=== PATIENT | male | born 1935 | race Caucasian/White ===

== ENCOUNTER 2016-08-05 07:35 | Observation (INO) | payer MEDICARE ==
[~2016-08-05] VITALS: Ht 188 cm; Wt 93.3 kg
[2016-08-05] VITALS (11 sets, daily range): BP systolic 115–154; BP diastolic 55–107; PULSE 85–126; RESP 16–24; O2SAT 91–98
[~2016-08-05 07:35] MED LIST: ASPI-628 PO; CALC500T9 PO; LANS30CA14 PO; NAM10 PO; SILD100T PO; [UNRECOGNIZED DRUG - OTHER] PO
[2016-08-05] MEDS ORDERED: EZET10TA27 PO (08:03)
[2016-08-05] MEDS ORDERED: WARF5TAB7 PO ×2 (08:03→14:15)
[2016-08-05] MEDS ORDERED: VERA80TA2 PO (08:03)
--- NOTE | 2016-08-05 08:15 | ED.REPORT ---
HPI-Chest Pain 40 and Over Date of Service August 05, 2016 ED Provider: Bryanna Rivera MD Nursing Notes Stated Complaint: SOB Chief Complaint: Respiratory Distress Nursing Notes Reviewed: Yes Allergies: Coded Allergies: No Known Allergies (Unverified , 08/05/16) Scheduled Aspirin (Aspir 81) 81 Mg Tablet.dr 81 MG PO DAILY Ezetimibe (Ezetimibe) 10 Mg Tablet 10 MG PO DAILY Lansoprazole DR (Prevacid) 30 Mg Capsule.dr 30 MG PO DAILY Memantine (Namenda) 10 Mg Tablet 10 MG PO BID Sildenafil Citrate (Viagra) 100 Mg Tablet 100 MG PO UD Verapamil (Verapamil) 80 Mg Tablet 80 MG PO TID Warfarin Sodium (Warfarin Sodium) 5 Mg Tablet 5 MG PO DAILY Scheduled PRN Calcium Carbonate (Tums) 200 Mg Tab.chew 200 MG PO PRN PRN PRN For Dyspepsia or Heartburn Past Medical History Smoking History Unknown if Ever Smoker Physical Exam Initial Vital Signs Vital Signs (First) Date Time Temp Pulse Resp B/P Pulse Ox O2 Delivery O2 Flow Rate FiO2 08/05/16 07:37 35.7 125 20 150/107 97 Interpretation & Diagnostics Lab Results Interpretation Result Diagram: 08/05/16 0755 08/05/16 0755 Test 08/05/16 07:55 White Blood Count 6.9th/mm3 (3.8-10.1) Red Blood Count 5.53mil/mm3 (4.40-5.80) Hemoglobin 15.2g/dL (13.8-17.2) Hematocrit 47.2% (41.0-50.0) Mean Corpuscular Volume 85.4fL (81-100) Mean Corpuscular Hemoglobin 27.5pg (27.0-35.0) Mean Corpuscular Hemoglobin Concent 32.2% (32.0-37.0) Red Cell Distribution Width 14.4% (12.3-15.4) Platelet Count 227bil/L (150-400) Neutrophils (%) (Auto) 70.4% (40-74) Lymphocytes (%) (Auto) 14.1% (14-46) Monocytes (%) (Auto) 12.2% (4-12) Eosinophils (%) (Auto) 2.6% (0-5) Basophils (%) (Auto) 0.4% (0-3) Sodium Level 142mEq/L (134-144) Potassium Level 4.0mEq/L (3.5-5.2) Chloride Level 104mEq/L (97-108) Carbon Dioxide Level 25mmol/L (18-29) Blood Urea Nitrogen 20mg/dL (8-27) Creatinine 1.02mg/dL (0.76-1.27) Estimat Glomerular Filtration Rate 75mL/min (>59) Glucose Level 105mg/dL (60-99) Calcium Level 9.3mg/dL (8.5-10.1) Magnesium Level 2.1mg/dL (1.6-2.6) Total Bilirubin 0.5mg/dL (0.0-1.2) Aspartate Amino Transf (AST/SGOT) 17U/L (0-50) Alanine Aminotransferase (ALT/SGPT) 9U/L (0-44) Alkaline Phosphatase 91U/L (25-160) Troponin T 0.010ug/L (0.0-0.011) Total Protein 7.2g/dL (6.4-8.4) Albumin 4.2g/dL (3.4-5.0) ECG Interpretation ECG Interpretation: Sinus tachycardia, rate 123 Prolonge QT interval Time: 07:48 Interpreted by: ED physician Discharge & Departure Referrals: Shelton Vizcaino MD (PCP) Bryanna Schaefer MD August 05, 2016 08:15 Christine Valle August 05, 2016 08:24
[2016-08-05 08:28] LABS: TROPONIN T 0.01 ug/L (0.0-0.011)
[2016-08-05 08:30] LABS: BASOPHILS % (AUTO) 0.4 % (0-3); EOSINOPHILS % (AUTO) 2.6 % (0-5); MONOCYTES % (AUTO) 12.2 % (4-12); Mean Corpuscular Hemoglobin 27.5 pg (27.0-35.0); Mean Corpuscular Volume 85.4 fL (81-100); NEUTROPHILS % (AUTO) 70.4 % (40-74); Platelet Count 227 bil/L (150-400)
[2016-08-05 08:39] LABS: Magnesium 2.1 mg/dL (1.6-2.6)
--- NOTE | 2016-08-05 09:00 | DRSVH ---
PROCEDURE: X-RAY CHEST ONE VIEW, PORTABLE ([id number]) INDICATIONS: SHORT OF BREATH TECHNIQUE: One view of the chest was acquired. COMPARISON: None. FINDINGS: Surgical changes and devices: None. Lungs and pleura: No pleural effusions or pneumothorax. Bibasilar atelectasis otherwise the lungs ar e clear. Mediastinum: Mediastinal contours appear normal. Heart size is normal. Bones and chest wall: No suspicious bony lesions. Overlying soft tissues appear unremarkable. IMPRESSION: Bibasilar atelectasis otherwise normal chest radiograph. Dictated by: Ramirez Mendes M.D. on 08/05/2016 at 8:57 Approved by: Ramirez Mendes M.D. on 08/05/2016 at 8:58
--- NOTE | 2016-08-05 09:07 | ED.REPORT ---
HPI-Dyspnea / Wheezing Date of Service August 05, 2016 ED Provider: Boyd Shea MD The pt is a 81 year old male w/ a hx of HTN and dementia who presents to the ED accompanied by his due to SOB intermittently for the past month and worsening over the last 2 days. Associated symptoms include non-productive cough , fatigue, heart palpitations, and nasal congestion. His symptoms are worse when he lies down and are not exacerbated by exertion. He denies fever, chest pain, and vomiting. Nursing Notes Stated Complaint: SOB Chief Complaint: Respiratory Distress Nursing Notes Reviewed: Yes Allergies: Coded Allergies: Kldlosr-Lyz-Wzk Reductase Inhibitor (Verified Allergy, Unknown, 08/05/16) Scheduled Aspirin (Aspirin) 81 Mg Tablet 81 MG PO DAILY Ezetimibe (Ezetimibe) 10 Mg Tablet 10 MG PO DAILY Lansoprazole DR (Prevacid) 30 Mg Capsule.dr 30 MG PO DAILY Memantine HCl (Memantine HCl) 10 Mg Tablet 10 MG PO BID Verapamil (Verapamil) 80 Mg Tablet 80 MG PO TID Warfarin Sodium (Warfarin Sodium) 5 Mg Tablet 5 MG PO Friday, fri,fri, fri Warfarin Sodium (Warfarin Sodium) 5 Mg Tablet 2.5 MG PO ,,Fri Scheduled PRN Calcium Carbonate (Tums) 200 Mg Tab.chew 200-400 MG PO TID PRN PRN For Dyspepsia or Heartburn Clotrimazole (Itch Relief) 1 % Cream..g. 15 GM TP BID PRN PRN prn Desonide (Desonide Cream) 15 Gm Cream..g. 1 APPLIC TOP BID PRN PRN prn Sildenafil Citrate (Viagra) 100 Mg Tablet 50-100 MG PO prn PRN PRN for sexual activity General Time Seen by MD: 09:05 Chief Complaint Shortness of breath Hx Obtained From: Patient Arrived By: Walk-in Sudden in Onset?: Yes Onset Occurred: More than a week ago... (1 month) Symptom Duration: Intermittent Severity: Current: No pain currently Recent Healthcare: No recent doctor visit, No recent hospitalization Similar Sx Previous: No Past Medical History Past Medical History acid reflux Reports: Hypertension Past Surgical History cardiac stents Reports: Inguinal hernia repair Smoking History Never Smoker Social History Other Social History: Good social support, , Local resident Ambulatory Status Independent Review of Systems Review of Systems Note: heart palpitations Constitutional: Reports: Fatigue, Denies: Fever Ears / Nose / Throat: Reports: Nasal congestion Respiratory: Reports: Non-productive cough, Shortness of breath Cardiovascular: Denies: Chest pain Complete sys rev & neg: except as marked. GI: Denies: Vomiting Physical Exam Initial Vital Signs Vital Signs (First) Date Time Temp Pulse Resp B/P Pulse Ox O2 Delivery O2 Flow Rate FiO2 08/05/16 07:37 35.7 125 20 150/107 97 08/05/16 09:32 Nasal Cannula 1.5 Initial VS: Reviewed Head / Eyes: Atraumatic, Normocephalic, PERRL ENT: Mucous membranes moist, Conjunctiva normal Abdomen / GI: Soft, Non-tender, No guarding, No rebound Back: No CVA tenderness Lymphatic: No lymphadenopathy Extremities: Vascular intact, Neuro intact, No swelling, No tenderness Skin: Warm, Dry Neurologic: Alert, Oriented General/Constitutional: Awake, Alert, Cooperative Neck: Atraumatic, Supple Wheezing / Retractions: Positive: Wheeze insp/exp diffuse (scattered ) Cardiovascular: No murmurs Heart Rate / Rhythm: Positive: Tachycardia Interpretation & Diagnostics Lab Results Interpretation Result Diagram: 08/05/16 0755 08/05/16 0755 Test 08/05/16 07:55 White Blood Count 6.9th/mm3 (3.8-10.1) Red Blood Count 5.53mil/mm3 (4.40-5.80) Hemoglobin 15.2g/dL (13.8-17.2) Hematocrit 47.2% (41.0-50.0) Mean Corpuscular Volume 85.4fL (81-100) Mean Corpuscular Hemoglobin 27.5pg (27.0-35.0) Mean Corpuscular Hemoglobin Concent 32.2% (32.0-37.0) Red Cell Distribution Width 14.4% (12.3-15.4) Platelet Count 227bil/L (150-400) Neutrophils (%) (Auto) 70.4% (40-74) Lymphocytes (%) (Auto) 14.1% (14-46) Monocytes (%) (Auto) 12.2% (4-12) Eosinophils (%) (Auto) 2.6% (0-5) Basophils (%) (Auto) 0.4% (0-3) Prothrombin Time 25.4sec (8.1-12.5) Prothromb Time International Ratio 2.33ratio D-Dimer < 0.50mg/L FEU (<0.50) Sodium Level 142mEq/L (134-144) Potassium Level 4.0mEq/L (3.5-5.2) Chloride Level 104mEq/L (97-108) Carbon Dioxide Level 25mmol/L (18-29) Blood Urea Nitrogen 20mg/dL (8-27) Creatinine 1.02mg/dL (0.76-1.27) Estimat Glomerular Filtration Rate 75mL/min (>59) Glucose Level 105mg/dL (60-99) Calcium Level 9.3mg/dL (8.5-10.1) Magnesium Level 2.1mg/dL (1.6-2.6) Total Bilirubin 0.5mg/dL (0.0-1.2) Aspartate Amino Transf (AST/SGOT) 17U/L (0-50) Alanine Aminotransferase (ALT/SGPT) 9U/L (0-44) Alkaline Phosphatase 91U/L (25-160) Troponin T 0.010ug/L (0.0-0.011) Pro-B-Type Natriuretic Peptide 2311pg/mL (0-486) Total Protein 7.2g/dL (6.4-8.4) Albumin 4.2g/dL (3.4-5.0) Hold Ortiz Top Tube Received (Received) ECG Interpretation ECG Interpretation: no ST changes Time: 08:30 Interpreted by: ED physician Rhythm / Conduction: Tachycardia (rate 123) Time: 09:19 Interpreted by: ED physician Rhythm / Conduction: Tachycardia (rate 120) X-Ray Chest Interpretation Chest Xray Interpretation: IMPRESSION: Bibasilar atelectasis otherwise normal chest radiograph. Dictated by: Ramirez Mendes M.D. on 08/05/2016 at 8:57 Approved by: Ramirez Mendes M.D. on 08/05/2016 at 8:58 View: Portable Interpretation / Wet Read by: Interpret - Radiologist Re-Eval/Medical Decision Med Decision/Clinical Course 81-year-old male history of atrial fibrillation on Coumadin, CHF, CAD with stents presenting with dyspnea times one month. On arrival his heart rate was in the 120s to 140s. At times he was in sinus rhythm at times and atrial fibrillation with RVR. Patient was given several doses of diltiazem with minimal improvement. His heart rate still bumped up to the 140s. He was placed on a diltiazem drip and admitted for atrial fibrillation with RVR. His d-dimer is negative. He has a CHF component likely with BNP elevated. Of the medications he shows me, he is not heart failure medications. Recent echo EF 45-50%. Will be admitted for atrial fibrillation with RVR, CHF exacerbation. Re-Evaluation/Progress : Time of Eval: 10:30 Re-Evaluation/Progress Note: Pt rechecked. He is going in and out of atrial fibrillation. Consultation : Referral / Consult Name: Myron Mathias MD Call Returned at: 12:48 Customer Support Executive: Agrees with eval, Agrees with plan, Accepts admit Note: Case discussed with endocrinology. Dr. Mathias accepts admit. Counseled Regarding: Diagnosis, Lab results, Need for admission Discharge & Departure Impression: Primary Impression: Atrial fibrillation with RVR Additional Impressions: Dyspnea Dyspnea type: unspecified Qualified Code: R06.00 - Dyspnea, unspecified CHF exacerbation Congestive heart failure type: unspecified congestive heart failure type Qualified Code: I50.9 - Heart failure, unspecified Disposition: ADMITTED TO HOSPITAL Discharge Condition All VS Reviewed: Yes Condition: Stable Referrals: Shelton Vizcaino MD (PCP) Crit Care Except Billable Proc Time Spent: 30-74 minutes (60) Services Performed: Patient management by me, Time spent at bedside, Reviewing test results, Reviewing imaging, Discussing patient care, Documentation in record, Time with fam/surrogate Scribe Attestation Portion of this note were transcribed by Elyssa Talavera. I, Dr. Shea, personally performed the history, physical exam, and medical decision-making: I reviewed and confirmed the accuracy for the information in the transcribed note. Signed by: aden To, 08/05/16 1100 copies to: Shelton Vizcaino MD, Ben M MD August 05, 2016 09:07 Elyssa Talavera August 05, 2016 09:15
[2016-08-05] MEDS ORDERED: 0.9% Sodium Chloride 500 ML IV ONE (09:17)
[2016-08-05] MEDS ORDERED: Albuterol-Ipratropium 3 mL Inhalation Solution NEB ONE (09:20)
[2016-08-05 09:34] LABS: INR 2.33 ratio
[2016-08-05] MEDS ORDERED: Diltiazem 5 mg/mL 5 mL Inj IVPUSH ONE ×2 (10:15→11:15)
[2016-08-05] MEDS ORDERED: Diltiazem Inj 125 MG in Dextrose 5% 100 ML IV SCH (12:13)
[2016-08-05] MEDS ORDERED: Alum-Mag Hydrox-Simeth 30 mL Suspension PO PRN ×2 (12:50)
[2016-08-05] MEDS ORDERED: Polyethylene Glycol (PEG) 17 Gm Powder PO PRN (12:50)
[2016-08-05] MEDS ORDERED: Ondansetron 2 mg/mL 2 mL Inj IVPUSH PRN ×2 (12:50)
[2016-08-05] MEDS ORDERED: DESO15CR25 TOP (14:15)
[2016-08-05] MEDS ORDERED: CLOT15CR66 TP (14:15)
[2016-08-05] MEDS ORDERED: ASPI-973 PO (14:15)
[2016-08-05] MEDS ORDERED: MEMA10TA20 PO (14:15)
[2016-08-05] MEDS ORDERED: Furosemide 10 mg/mL 4 mL Inj IVPUSH ONE (14:40)
--- NOTE | 2016-08-05 16:05 | NUR ---
ADMIT Pt arrived to the floor at 1535. He was brought by ED staff and was able to stand to transfer himself to bed. He also walked to the bathroom and his gait was steady. He arrived on a diltiazem drip at running at 15ml/hr. Vital signs were checked and he was put on a MP30 monitor. He denies any pain. He is alert and oriented and was able to answer assessment questions. Oriented to room and call light.
[2016-08-05] MEDS: Sodium Chloride LOK Flush 10 mL Syringe IVFLUSH SCH ×2 (16:30→23:13)
--- NOTE | 2016-08-05 17:50 | PCM.HPMED ---
Subjective Date of Service August 05, 2016 Primary Provider: Admitting Physician: Primary Care Physician: Shelton Vizcaino MD Attending Physician: Chief Complaint: Shortness of breath History of Present Illness: Dequan Goddard is a 81 year old man with past medical history significant for CAD status post stent, mild HFrEF, hypertension, dementia, atrial fibrillation on warfarin who presented to the [facility] ED today due to worsening shortness of breath for the last month that was worse this morning. The patient stated that he has noted periods of shortness of breath on and off for the last month but this morning it was so severe he decided he should come to the hospital. He is followed by Dequan Carrera. He has a past history beta jazmine intolerance. The patient denies any fevers, chills, or chest pain. He does note a new dry cough with a sensation of mucus in his throat as well as sinus drainage. The patient does have chronic mild lower extremity edema that has not changed. In the ED heart rate was as high as 150s. He was started on Cardizem drip which successfully brought his rate down to low 100s. The patient states that he feels much better now and his shortness of breath has nearly completely resolved. Review of Systems: A comprehensive review of systems was conducted with the patient and found to be negative except as above in the History of Present Illness. Allergies Coded Allergies: Hezivwm-Thx-Adp Reductase Inhibitor (Verified Allergy, Unknown, 08/05/16) Home Medications Dequan Goddard. [id number] 1935 04/01/2016 09:30 AM 03/22 Start Date Medication Directions Stop Date 11/22/2008 aspirin 81 mg Tab take 1 tablet (81MG) by ORAL route every day 10/26/2014 clotrimazole 1 % topical cream apply by topical route 2 times every day to the affected and surrounding areas of skin in the morning and evening 02/14/2016 desonide 0.05 % topical cream apply by topical route 2 times every day sparingly and rub gently into the affected area(s) 12/11/2015 Namenda 10 mg tablet take 1 tablet by mouth twice a day 12/11/2015 Prevacid 30 mg capsule,delayed release take 1 capsule by mouth once daily before A MEAL 05/23/2010 Tums 200 mg calcium (500 mg) Chewable Tab chew 2 tabs three times daily 01/18/2016 verapamil 80 mg tablet take 1 tablet by oral route 3 times every day 02/16/2016 warfarin 5 mg tablet take 1 tablet by mouth every evening as directed by your Anticoagulation Clinic 12/06/2015 ZETIA 10 MG TABLET take 1 tablet by mouth once daily PMH GERD, Lakisha's esophagus CAD s/p PIC and stent Hyperlipidemia Hypertension Paroxysmal A fib Nephrolithiasis Memory loss on Namenda Surgical History PCI Hernia surgeries Family History Mother had Alzheimer's disease Social History Hx Alcohol Use: Yes ("very seldom") Hx Substance Use: No Hx Tobacco Use: No Smoking Status: Never Smoker Exam Vital Signs Vital Sign - Last Date Time Temp Pulse Resp B/P Pulse Ox O2 Delivery O2 Flow Rate FiO2 08/05/16 13:55 110 20 138/77 95 Nasal Cannula 2 08/05/16 07:37 35.7 Exam General: No acute distress, well-developed, well-nourished, appropriately interactive HEENT: Normocephalic, atraumatic. External ears without defect. Pupils equal, round, and reactive to light and accommodation. Anicteric sclerae, moist conjunctivae, and no lid lag. Oropharynx free of erythema and with cobble stoning with moist mucosa. Neck: Supple with full range of motion. No jugular venous distension. No bruits. No lymphadenopathy or thyromegaly. Cardiovascular: Borderline tachycardic rate and irregular rhythm with no murmurs , rubs, or gallops appreciated Pulmonary: Bilateral basilar crackles. Normal respiratory effort with no use of accessory muscles. Abdomen: Bowel tones present. Soft, nontender, nondistended. No hepatosplenomegaly or masses appreciated. Small umbilical hernia noted. Extremities: No clubbing, cyanosis, or lymphadenopathy appreciated. Mild bilateral pitting edema of the ankles. Skin: Normal temperature, turgor, and texture; no rash, ulcers, or subcutaneous nodules appreciated. Neurological: Cranial nerves grossly intact. Normal muscle strength, tone, and bulk. Reflexes, coordination, and sensory function within normal limits. No known gait impairment. Psychiatric: Normal mood and affect. Alert and oriented to person, place, and time Lab and Diagnostics Result Diagram: 08/05/16 0755 08/05/16 0755 Cardiac Echo Impressions Interpretation Summary The left ventricle is borderline dilated. Left ventricular ejection fraction is estimated to be 45 +/- 5%. Difficult to assess due to arrhythmia (SVT). But, overall, the LVEF has decreased since prior study. There are no obvious focal wall motion abnormalities noted but poor endocardial definition reduces the sensitivity for the detection of such. The right ventricle is normal size. The right ventricular systolic function is normal. The right ventricular systolic pressure is estimated at 26 mmHg assuming a right atrial pressure of 3 mm Hg. Both atria are normal in size. There is mild mitral regurgitation. There is no significant valvular heart disease. The ascending aorta is mildly enlarged. The aortic arch is not well visualized but there is evidence for at least mild enlargement. Consider CT chest with contrast to further evaluate. Assessment & Plan Dequan Goddard is a 81 year old man with past medical history significant for CAD status post stent, mild HFrEF, hypertension, dementia, atrial fibrillation on warfarin who presented to the [facility] ED today due to worsening shortness of breath for the last month that was worse this morning. Atrial fibrillation with RVR, resolving -Patient does have chronic A. fib, and has been treated with CCB with good prior outcomes. -Avoid beta blockers due to intolerance -Continue Diltiazem drip for now, increase verapamil with plan to titrate off Diltiazem drip by tomorrow -Trial of IV Lasix as patient had basilar crackles -Continue Warfarin, dosed by pharmacy Heart failure with reduced EF, at 40%, not in apparent exacerbation -Will trial IV Lasix -Consider repeat ECHO if patient worsens Hyperlipidemia -Continue Zetia Hypertension -As above Memory loss -Continue Namenda GERD -Continue Prevacid Patient is admitted under observation status status with expected length of stay less than 2 midnights due to severity of presenting symptoms, risk of adverse event, and complexity of treatment plan. Attending Statement I interviewed and examined the patient on admission today. I agree with the assessment and plan as stated above. Luz Marina Cruz DO August 05, 2016 14:05 Myron Mathias MD August 06, 2016 07:16
--- NOTE | 2016-08-05 18:27 | PCM.CONPHA ---
Assessment/Plan Assessment/Plan ANTICOAGULATION MANAGEMENT BY PHARMACY -INDICATION: AFIB -HOME DOSE: 2.5 MG TUE,THUR,SAT 5 MG SUN,MON,WED,FRI -CONCURRENT ANTICOAGULATION: -COAG TRENDS: -[id number] SCORE: 3 PLAN: Date -July INR 2.33 INR change ~ Warf Dose 5 MG INR within range, will continue with home dose tonight of 5 mg. Pharmacy appreciates consult and will continue to monitor. THANKS! Aurora Pond PharmD August 05, 2016 18:27
[2016-08-05 18:30] LABS: APPEARANCE,URINE CLEAR (CLEAR,HAZY); COLOR,URINE STRAW (YELLOW); OCCULT BLOOD,URINE NEGATIVE (NEGATIVE); UROBILINOGEN,URINE NORMAL (NORMAL)
--- NOTE | 2016-08-05 19:40 | NUR ---
Case Management: SONIA explained to patient at 1925, all questions answered. Original copy placed in chart, copy given to patient. Lissa Schultz RN
[2016-08-05] MEDS: Diltiazem Inj 125 MG in 0.9% Sodium Chloride 100 ML, Pharmacy To Mix 1 EA IV SCH (21:12)
[2016-08-06 03:50] VITALS: BP 115/62; PULSE 69; RESP 16; O2SAT 94
--- NOTE | 2016-08-06 04:29 | NUR ---
Tele Patient has cardizem gtt infusing. Tele shows afib/flutter with periods of SR. HR 80-100. PO Verapamil and digoxin doses are administered. VSS. Patient converts to SR. EKG to confirm. Cardizem gtt is decreased to 5mg/hr. HR remains stable in SR 70-80.
[2016-08-06 04:50] LABS: INR 2.95 ratio
[2016-08-06] MEDS ORDERED: Pantoprazole 40 mg ER24 Tablet PO SCH (06:30)
[2016-08-06 08:30] VITALS: BP_SYST 132; BP_SYST 89; BP_DIAS 51; BP_DIAS 62; PULSE 75; RESP 24; O2SAT 91
[2016-08-06] MEDS: Sodium Chloride LOK Flush 10 mL Syringe IVFLUSH SCH (08:46)
[2016-08-06 11:15] VITALS: PULSE 76
--- NOTE | 2016-08-06 11:46 | PCM.PHAPRO ---
Progress Date of Service: August 06, 2016 Shortness of breath Warfarin management per pharmacy Indication: atrial fibrillation INR goal: 2-3 Home warfarin dose: 2.5 mg on //Fri, 5 mg on all other days of the week Date August 06-July INR 2.33 2.95 INR change 0.62 Warf Dose 5 MG xxxxxx INR is therapeutic but aggressively trending up after resuming home dose yesterday. Hold warfarin tonight. Pharmacy to continue to monitor and dose warfarin daily. Thank you, Jami Sullivan Pharmacist Jami Sullivan August 06, 2016 11:46
[2016-08-06 12:20] VITALS: BP 114/64; PULSE 73; RESP 24; O2SAT 92
[2016-08-06] MEDS ORDERED: FUR20 PO (12:44)
[2016-08-06] MEDS ORDERED: VERA360C2 PO (12:44)
--- NOTE | 2016-08-06 12:47 | PCM.DIMED ---
Discharge Instructions Date of Service August 06, 2016 Dates of Hospitalization August 05, 2016 at 14:55 Discharge Diagnosis Discharge Diagnosis Atrial fibrillation with rapid ventricular response; acute diastolic congestive heart failure Medication Instructions Additional med instructions Your verapamil dose has been increased and you may take long acting 360 mg tablet once per day. The prescription for the diuretic medicine furosemide has been given for 5 days to relieve some of the extra fluid buildup in your lungs. You may stop after this. Diet Discharge Diet: Heart Healthy Activity Discharge Activity: No restrictions Call your provider Call your provider for: Shortness of breath Patient Instructions Follow-up Provider: Shelton Vizcaino MD Follow-up with PCP in: 1 week Myron Mathias MD August 06, 2016 12:47
[2016-08-06] MEDS: Diltiazem Inj 125 MG in 0.9% Sodium Chloride 100 ML, Pharmacy To Mix 1 EA IV SCH (12:55)
--- NOTE | 2016-08-06 12:57 | PCM.DC.MED ---
Discharge Summary Date of Service August 06, 2016 Dates of Hospitalization Date of Hospital Admission August 05, 2016 at 14:55 Date of Discharge: August 06, 2016 Providers: Admitting Physician: Mavis Munguia MD Primary Care Physician: Shelton Vizcaino MD Attending Physician: Mavis Munguia MD Diagnosis at Time of Discharge Diagnosis at Time of Discharge Atrial fibrillation with rapid ventricular response; acute diastolic congestive heart failure Procedures Cardiac Echo Impression Interpretation Summary The left ventricle is borderline dilated. Left ventricular ejection fraction is estimated to be 45 +/- 5%. Difficult to assess due to arrhythmia (SVT). But, overall, the LVEF has decreased since prior study. There are no obvious focal wall motion abnormalities noted but poor endocardial definition reduces the sensitivity for the detection of such. The right ventricle is normal size. The right ventricular systolic function is normal. The right ventricular systolic pressure is estimated at 26 mmHg assuming a right atrial pressure of 3 mm Hg. Both atria are normal in size. There is mild mitral regurgitation. There is no significant valvular heart disease. The ascending aorta is mildly enlarged. The aortic arch is not well visualized but there is evidence for at least mild enlargement. Consider CT chest with contrast to further evaluate. Brief History History of Present Illness (per admission note): Dequan Goddard is a 81 year old man with past medical history significant for CAD status post stent, mild HFrEF, hypertension, dementia, atrial fibrillation on warfarin who presented to the [facility] ED today due to worsening shortness of breath for the last month that was worse this morning. The patient stated that he has noted periods of shortness of breath on and off for the last month but this morning it was so severe he decided he should come to the hospital. He is followed by Dequan Carrera. He has a past history beta jazmine intolerance. The patient denies any fevers, chills, or chest pain. He does note a new dry cough with a sensation of mucus in his throat as well as sinus drainage. The patient does have chronic mild lower extremity edema that has not changed. In the ED heart rate was as high as 150s. He was started on Cardizem drip which successfully brought his rate down to low 100s. The patient states that he feels much better now and his shortness of breath has nearly completely resolved. Hospital Course #1 Atrial fibrillation with RVR. Acute. - Verapamil dose was increased to 120 mg 3 times a day - Digoxin load was administered and may have contributed to rate control; elected not to continue digooxin at this time due to drug interaction with verapamil; - Diltiazem drip discontinued with good rate control with walking prior to discharge #2 Acute systolic and diastolic heart failure related to A. fib rate control. Heart failure with reduced EF, at 40%. One month of symptoms. - Symptoms improved after 1 dose furosemide 20 mg - Continue Lasix 20 mg per day for 5 days, then reevaluation at primary care cardiology clinic regarding need for further diuretics. #3 Chronic anticoagulation on warfarin. INR 2.33, 2.95 on usual doses warfarin. - Plan follow-up of INR in light of changes and other medications Hyperlipidemia -Continue Zetia Hypertension - Verapamil doses been increased Memory loss -Continue Namenda GERD -Continue Prevacid . Exam Vital Signs (Last) Date Time Temp Pulse Resp B/P Pulse Ox O2 Delivery O2 Flow Rate FiO2 08/06/16 12:20 36.8 73 24 114/64 92 Room Air 08/06/16 03:50 3.00 Exam General: Generally healthy-appearing, no acute distress HEENT: sclerae anicteric, oral mucosa moist Neck: no JVD apparent by inspection Chest: Trace bibasilar crackles, improved since admission Cardiac: S1S2, irregular Abdomen: BS normal, non-tender Extremities: Trace edema Neuro: A&O, cranial nerves symmetric, motor strength 5/5, coordination normal Test 08/05/16 07:55 08/05/16 18:00 08/06/16 04:20 White Blood Count 6.9th/mm3 (3.8-10.1) Red Blood Count 5.53mil/mm3 (4.40-5.80) Hemoglobin 15.2g/dL (13.8-17.2) Hematocrit 47.2% (41.0-50.0) Mean Corpuscular Volume 85.4fL (81-100) Mean Corpuscular Hemoglobin 27.5pg (27.0-35.0) Mean Corpuscular Hemoglobin Concent 32.2% (32.0-37.0) Red Cell Distribution Width 14.4% (12.3-15.4) Platelet Count 227bil/L (150-400) Neutrophils (%) (Auto) 70.4% (40-74) Lymphocytes (%) (Auto) 14.1% (14-46) Monocytes (%) (Auto) 12.2% (4-12) Eosinophils (%) (Auto) 2.6% (0-5) Basophils (%) (Auto) 0.4% (0-3) D-Dimer < 0.50mg/L FEU (<0.50) Magnesium Level 2.1mg/dL (1.6-2.6) Total Bilirubin 0.5mg/dL (0.0-1.2) Aspartate Amino Transf (AST/SGOT) 17U/L (0-50) Alanine Aminotransferase (ALT/SGPT) 9U/L (0-44) Alkaline Phosphatase 91U/L (25-160) Troponin T 0.010ug/L (0.0-0.011) Pro-B-Type Natriuretic Peptide 2311pg/mL (0-486) Total Protein 7.2g/dL (6.4-8.4) Albumin 4.2g/dL (3.4-5.0) Hold Ortiz Top Tube Received (Received) Urine Color Straw (YELLOW) Urine Appearance Clear (CLEAR,HAZY) Urine pH 5.0 (5.0-8.0) Urine Specific [place] 1.010 (1.003-1.035) Urine Protein Negativemg/dL (NEG,TRACE) Urine Glucose (UA) Negativemg/dL (NEGATIVE) Urine Ketones Negativemg/dL (NEGATIVE) Urine Occult Blood Negative (NEGATIVE) Urine Nitrite Negative (NEGATIVE) Urine Bilirubin Negative (NEGATIVE) Urine Urobilinogen Normalmg/dL (NORMAL) Urine Leukocyte Esterase Negative (NEGATIVE) Urine RBC 0-2/hpf (0-2) Urine WBC 0-5/hpf (0-5) Urine Epithelial Cells Occasional/hpf (NONE-MOD) Urine Crystals None seen (NONE SEEN) Urine Bacteria None/hpf (NONE-FEW) Urine Hyaline Casts None/lpf (NONE) Urine Granular Casts None seen (NONE SEEN) Urine Waxy Casts None seen (NONE SEEN) Urine Red Blood Cell Casts None seen (NONE SEEN) Urine White Blood Cell Casts None seen (NONE SEEN) Urine Mucus None seen (None Seen) Urine Trichomonas None seen (NONE SEEN) Urine Yeast None (NONE SEEN) Urinalysis Comment None Urine Culture Reflexed Not indicated Prothrombin Time 32.3sec (8.1-12.5) Prothromb Time International Ratio 2.95ratio Sodium Level 140mEq/L (134-144) Potassium Level 3.9mEq/L (3.5-5.2) Chloride Level 103mEq/L (97-108) Carbon Dioxide Level 25mmol/L (18-29) Blood Urea Nitrogen 23mg/dL (8-27) Creatinine 1.15mg/dL (0.76-1.27) Estimat Glomerular Filtration Rate 65mL/min (>59) Glucose Level 101mg/dL (60-99) Calcium Level 8.8mg/dL (8.5-10.1) Discharge Medications Discharge Medications Aspirin (Aspirin) 81 Mg Tablet 81 MG PO DAILY (Reported) Ezetimibe (Ezetimibe) 10 Mg Tablet 10 MG PO DAILY (Reported) Furosemide (Furosemide) 20 Mg Tab 20 MG PO DAILY Prescribed by: MAVIS MUNGUIA MD Lansoprazole DR (Prevacid) 30 Mg Capsule.dr 30 MG PO DAILY (Reported) Memantine HCl (Memantine HCl) 10 Mg Tablet 10 MG PO BID (Reported) Verapamil ER (Verapamil ER) 360 Mg Cap24h.pel 360 MG PO DAILY Prescribed by: MAVIS MUNGUIA MD Warfarin Sodium (Warfarin Sodium) 5 Mg Tablet 5 MG PO Friday, fri,fri, fri ( Reported) Warfarin Sodium (Warfarin Sodium) 5 Mg Tablet 2.5 MG PO ,,Fri (Reported) As needed Calcium Carbonate (Tums) 200 Mg Tab.chew 200-400 MG PO TID PRN PRN For Dyspepsia or Heartburn (Reported) Clotrimazole (Itch Relief) 1 % Cream..g. 15 GM TP BID PRN PRN prn (Reported) Desonide (Desonide Cream) 15 Gm Cream..g. 1 APPLIC TOP BID PRN PRN prn (Reported ) Sildenafil Citrate (Viagra) 100 Mg Tablet 50-100 MG PO prn PRN PRN for sexual activity (Reported) Additional med instructions Your verapamil dose has been increased and you may take long acting 360 mg tablet once per day. The prescription for the diuretic medicine furosemide has been given for 5 days to relieve some of the extra fluid buildup in your lungs. You may stop after this. Followup Plan Disposition: Home Follow-up plan PCP and cardiology follow-up 1-2 weeks. Discharge Diet: Heart Healthy Discharge Activity: No restrictions Follow-up Provider: Shelton Vizcaino MD Follow-up with PCP in: 1 week Provider: Dequan Carrera PA-C Follow-up in: 2 weeks Time spent 35 minutes copies to: Dequan Carrera PA-C; Shelton Vizcaino MD, Jeffrey W MD August 06, 2016 12:57
--- NOTE | 2016-08-06 13:56 | NUR ---
Social Work Note: Initial Assessment/Discharge Data& Assessment: EMR reviewed. SW met with pt at bedside to discuss discharge planning and assess for any unmet needs, SW role explained. Dequan Goddard is a 81 year old male under observation for AFIB with RVR beginning on 08/05/2016. Per pt is medically improved and ready to discharge home via POV. Pt has [facility] [place] [facility] insurance coverage and sees Shelton Vizcaino MD for primary care. Pt lives in [place] alone and is independent at baseline with all ADL's. Pt does not use any DME and does not have HH or SNF hx. Pt does not have LTC insurance or VA benefits. Pt drives and lives in a one story home with two steps to enter the home. Pt primary support person is his ex Bettye ([phone]) who will be transporting him home today. Pt declined coordination of DC with ex . Pt declined any resources or services. Pt declined DPOA/Advance Directive paperwork. Pt independent in his room. Pt denies any other needs. Plan: Per pt is medically improved and ready to discharge home via POV. Pt declined any resources or services. Pt denies any other needs. No other order received from MD. No other needs identified. RIAN Coleman Addendum: 08/06/16 at 1410 by VIDA MACIEL Amended: Links added.
--- NOTE | 2016-08-06 14:46 | NUR ---
Discharge Pt was educated on new medications and home routine. Telemetry leads were removed. IV was removed. Pt and this RN went through discharge packet and both signed the final page. Pt's home meds were brought up from the pharmacy and sent home with pt. Pt demonstrated of teaching and new medications. Computer verified scripts were electronically sent to pharmacy. Pt left with all personal belongings around 1430.
== END 2016-08-06 14:15 | disposition home or self-care (01) ==
LOC: SED 07:35 → PCC 14:55
PROVIDERS: ADMIT Internal Medicine; ATTEND Internal Medicine
DX: I48.0 Paroxysmal atrial fibrillation (principal); I50.31 Acute diastolic (congestive) heart failure; E78.5 Hyperlipidemia, unspecified; I10 Essential (primary) hypertension; R41.3 Other amnesia; K21.9 Gastro-esophageal reflux disease without esophagitis; F03.90 Unspecified dementia, unspecified severity, without behavioral disturbance, psychotic disturbance, mood disturbance, and anxiety; K22.70 Barrett's esophagus without dysplasia; R06.02 Shortness of breath; R06.00 Dyspnea, unspecified; Z88.8 Allergy status to other drugs, medicaments and biological substances; Z79.82 Long term (current) use of aspirin; Z79.01 Long term (current) use of anticoagulants; Z95.5 Presence of coronary angioplasty implant and graft; Z87.442 Personal history of urinary calculi
CPT/HCPCS: 36415; 71010; 80048; 80053; 81000; 83735; 83880; 84484; 85025; 85378; 85610; 93005; 94664; 96374; 96375; 96376; 99291; G0378; J1940; J7030; J7620